=== PATIENT | male | born 1970 | race Caucasian/White ===

== ENCOUNTER 2021-07-01 11:30 | Outpatient (CLI) | payer OTHER, SELFPAY ==
[2021-07-01 11:35] VITALS: BP 122/80; PULSE 85; RESP 16; TEMP 36.6; O2SAT 96
[2021-07-01 12:00] VITALS: BMI 31.6
[2021-07-01 12:10] VITALS: BP 124/83; PULSE 88; RESP 16; O2SAT 96
== END 2021-07-01 11:31 | disposition home or self-care (01) ==
LOC: OPS 12:03
PROVIDERS: Visit Provider Nurse Practitioner Family
DX: U07.1 COVID-19 (principal)
CPT/HCPCS: 96365